=== PATIENT | male | born 1990 ===

== ENCOUNTER 2020-09-18 11:32 | Emergency (ER) | payer SELFPAY ==
[~2020-09-18] VITALS: Ht 182.9 cm; Wt 102.1 kg
[2020-09-18 12:16] VITALS: BP 128/86
[2020-09-18] MEDS ORDERED: cefTRIAXone SOD 1,000 MG VL IM ONE (13:00)
== END 2020-09-18 13:54 | disposition home or self-care (01) ==
LOC: ER 11:32
DX: U07.1 COVID-19 (principal); J12.82 Pneumonia due to coronavirus disease 2019
CPT/HCPCS: 71045; 96372; 99283; J0696